=== PATIENT | male | born 1960 ===

== ENCOUNTER 2016-07-28 10:20 | Emergency (ER) | payer BC ==
[2016-07-28 10:28] VITALS: O2SAT 100
[2016-07-28] MEDS ORDERED: Sodium Chloride 0.9% 1,000 ML IV ONE ×3 (11:00→14:07)
[2016-07-28] MEDS ORDERED: Sodium Chloride 0.9% 1,000 ML ONE ×2 (11:10→12:43)
[2016-07-28 11:29] LABS: BASO % 0.2 % (0.0-2.0); EOS % 0.3 % (0.0-4.0); HEMATOCRIT 48.4 % (35.0-51.0); LYMPH # 0.4 K/uL (1.0-4.3); LYMPH % 4.9 % (20.0-40.0); MEAN CELL VOLUME 88.2 fL (80.0-94.0); MEAN CORPUSCULAR HEMOGLOBIN 28.3 pg (27.0-31.0); MEAN CORPUSCULAR HGB CONC 32.1 g/dL (33.0-37.0); MEAN PLATELET VOLUME 8.7 fL (7.2-11.7); MONO # 0.6 K/uL (0.0-0.8); MONO % 7.1 % (0.0-10.0); PLATELET COUNT 249 K/uL (130-400); RED CELL DISTRIBUTION WIDTH 12.9 % (11.5-14.5); WHITE BLOOD COUNT 7.8 K/uL (4.8-10.8)
[2016-07-28 11:36] LABS: CHLORIDE 96 mmol/L (98-107)
[2016-07-28 11:37] LABS: POTASSIUM 4.4 mmol/L (3.6-5.2); SODIUM 137 mmol/L (132-148)
[2016-07-28 11:39] LABS: ALB/GLOB RATIO 1.3 (1.0-2.1); ALKALINE PHOSPHATASE 88 U/L (38-126); ALT/SGPT 49 U/L (21-72); AST/SGOT 26 U/L (17-59); BILIRUBIN,TOTAL 0.5 mg/dL (0.2-1.3); BLOOD UREA NITROGEN 27 mg/dL (9-20); CARBON DIOXIDE 25 mmol/L (22-30); GFR AFRICAN-AMERICAN > 60; GLUCOSE,RANDOM 384 mg/dL (75-110); TOTAL PROTEIN 8.6 g/dL (6.3-8.3)
[2016-07-28 11:40] LABS: CALCIUM 9.4 mg/dl (8.6-10.4)
[2016-07-28 11:54] LABS: METAMYELOCYTE 1 % (0-0); NEUTROPHIL 84 % (50-75); REACTIVE LYMPHOCYTES 1 % (0-0); TOTAL CELLS COUNTED 100
[2016-07-28] MEDS ORDERED: (Novolin R) Insulin Human Regular 100 units/ml vial IV STA (12:08)
[2016-07-28] MEDS ORDERED: (Novolin R) Insulin Human Regular 100 units/ml vial ONE (12:13)
--- NOTE | 2016-07-28 12:38 | C.PDOC ---
History Of Present Illness 56-year-old male, PMHx includes Diabetes, presents to the emergency department with complaints of multiple episodes of non-bloody/watery diarrhea since last night. States he went out for dinner last night and had lasagna; other members that ate the food do not have symptoms. Patient denies fevers, nausea/vomiting , chest pain, shortness of breath, cough. Patient admits he did not take his Metformin today. Time Seen by Provider: 07/28/16 10:37 Chief Complaint (Nursing): GI Problem History Per: Patient History/Exam Limitations: no limitations Onset/Duration Of Symptoms: Hrs Current Symptoms Are (Timing): Still Present Severity: Moderate Past Medical History Reviewed: Historical Data, Nursing Documentation, Vital Signs Vital Signs: Last Vital Signs Temp 99.2 F 07/28/16 15:19 Pulse 111 H 07/28/16 15:19 Resp 16 07/28/16 15:19 BP 103/64 07/28/16 15:19 Pulse Ox 100 07/28/16 15:21 - Medical History PMH: Diabetes Family History: States: No Known Family Hx - Social History Hx Alcohol Use: Yes Hx Substance Use: No - Immunization History Hx Tetanus Toxoid Vaccination: No Hx Influenza Vaccination: No Hx Pneumococcal Vaccination: No Review Of Systems Except As Marked, All Systems Reviewed And Found Negative. Constitutional: Negative for: Fever Cardiovascular: Negative for: Chest Pain, Palpitations Respiratory: Negative for: Shortness of Breath Gastrointestinal: Positive for: Nausea, Diarrhea. Negative for: Vomiting, Abdominal Pain Genitourinary: Negative for: Dysuria, Hematuria Skin: Negative for: Rash Physical Exam - Physical Exam Appears: Well, Non-toxic, No Acute Distress Skin: Warm, Dry, No Rash Oral Mucosa: Moist Lips: Normal Appearing Chest: Symmetrical Cardiovascular: Rhythm Regular (Tachycardic) Respiratory: Normal Breath Sounds, No Rales, No Rhonchi Gastrointestinal/Abdominal: Normal Exam, Bowel Sounds, Soft, No Tenderness Extremity: Normal ROM Neurological/Psych: Oriented x3 ED Course And Treatment - Laboratory Results Result Diagrams: 07/28/16 11:20 07/28/16 11:20 ECG: Interpreted By Me, Viewed By Me (sinus tachycardia 114bpm, normal axis, no acute ST/T wave changes) ECG Interpretation: Abnormal (tachycardic ) O2 Sat by Pulse Oximetry: 100 (RA) Pulse Ox Interpretation: Normal Progress Note: Blood work, UA ordered and reviewed. Patient given IV NS bolus. IV insulin given due to hyperglycemia. 15:30 - On reassessment, patient is resting comfortably and states he feels much better. On exam, abdomen is soft and nontender. Vitals have improved, and patient is comfortable being discharged home. He was given Rx for Bentyl, and instructed to drink plenty of clear fluids, advance diet slowly, and follow up with PMD/clinic in 1-2 days. He understands he should return to ED if syptoms return/worsen. Reevaluation Time: 14:00 Reassessment Condition: Improved (Patient reassessed, states he is having some abdominal cramping pain. IV toradol ordered.) Disposition Counseled Patient/Family Regarding: Studies Performed, Diagnosis, Need For Followup, Rx Given - Disposition Referrals: Shaik Golden MD [Staff Provider] - Disposition: HOME/ ROUTINE Disposition Time: 15:20 Condition: STABLE Additional Instructions: FOLLOW UP WITH YOUR DOCTOR IN 1-2 DAYS USE MEDICATION NEEDED DRINK PLENTY OF CLEAR FLUIDS, AND ADVANCE TO BLAND DIET SLOWLY RETURN TO ER IF SYMPTOMS WORSEN Prescriptions: Dicyclomine [Bentyl] 20 mg PO Q6 PRN #15 tab PRN Reason: ABDOMINAL CRAMPING Instructions: Acute Diarrhea (ED) Print Language: MALAY - POA Present On Arrival: None - Clinical Impression Clinical Impression: Acute diarrhea - Scribe Statement The provider has reviewed the documentation as recorded by the Rik Ann All medical record entries made by the Papiibaz were at my direction and personally dictated by me. I have reviewed the chart and agree that the record accurately reflects my personal performance of the history, physical exam, medical decision making, and the department course for this patient. I have also personally directed, reviewed, and agree with the discharge instructions and disposition.
[2016-07-28 14:27] LABS: RBC URINE < 1 /hpf (0-3); URINE BACTERIA RARE (<OCC); URINE BILIRUBIN NEGATIVE (NEGATIVE); URINE BLOOD NEGATIVE (NEGATIVE); URINE COLOR Yellow (YELLOW); URINE GLUCOSE (UA) 3+ mg/dL (Normal); URINE KETONE TRACE mg/dL (NEGATIVE); URINE LEUKOCYTE ESTERASE NEG Leu/uL (Negative); URINE PROTEIN NEGATIVE (NEGATIVE); URINE UROBILINOGEN NORMAL mg/dL (0.2-1.0); WBC URINE 2 /hpf (0-5)
[2016-07-28 15:22] VITALS: BP 103/64; PULSE 111; RESP 16; TEMP 99.2
--- NOTE | 2016-07-31 15:25 | CARD ---
APPROVED REPORT EKG Measurement Heart [id number] <Conclusion> Sinus tachycardia Possible Inferior infarct, age undetermined Abnormal ECG
== END 2016-07-28 15:31 | disposition home or self-care (01) ==
LOC: C.ER 10:20
DX: R19.7 Diarrhea, unspecified (principal); E11.9 Type 2 diabetes mellitus without complications; Z79.84 Long term (current) use of oral hypoglycemic drugs
CPT/HCPCS: 80053; 81001; 82948; 83690; 85025; 93005; 96361; 96374; 96375; 99284; J1885; J7040